=== PATIENT | male | born 1945 | race Caucasian/White ===

== ENCOUNTER 2018-08-05 10:32 | Outpatient (CLI) | payer OTHER ==
--- NOTE | 2018-08-05 12:22 | XRAY Report ---
Reason: SHORTNESS OF BREATH Procedure Date: 08/05/2018 Accession Number: [id number] / [id number] Procedure: XR - Chest 2 View X-Ray CPT Code: 76720 FULL RESULT: EXAM: CHEST RADIOGRAPHY EXAM DATE: 08/05/2018 10:52 AM. CLINICAL HISTORY: Shortness of breath. COMPARISON: XR CHEST 1 VIEWS 08/12/2011 2:23 PM. TECHNIQUE: 2 views. FINDINGS: Lungs/Pleura: No focal opacities evident. No pleural effusion. No pneumothorax. Increased lung volumes and flattened diaphragms, suggestive of obstructive lung disease. Mediastinum: Stable cardiomegaly with tortuous aorta status post CABG. Other: Colonic interposition is noted underneath the diaphragms. IMPRESSION: Marked obstructive lung disease with no consolidation detected. [facility]
== END 2018-08-05 10:33 | disposition home or self-care (01) ==
LOC: DI 10:32
PROVIDERS: ATTEND Nurse Practitioner Family
DX: J44.9 Chronic obstructive pulmonary disease, unspecified (principal)
CPT/HCPCS: 71046

== ENCOUNTER 2018-08-17 13:15 | Outpatient (CLI) | payer MEDICARE ==
[~2018-08-17 13:15] MED LIST: ALBUTEROL NEB 2.5 MG/3 ML INH ONE
== END 2018-08-17 13:16 | disposition home or self-care (01) ==
LOC: RT 13:15
PROVIDERS: ATTEND Nurse Practitioner Family
DX: J44.9 Chronic obstructive pulmonary disease, unspecified (principal)
CPT/HCPCS: 94060; 94664